=== PATIENT | male | born 1985 | race Caucasian/White ===

== ENCOUNTER 2017-04-28 11:46 | Emergency (ER) | payer MEDICAID ==
[~2017-04-28] VITALS: Ht 190.5 cm; Wt 79.4 kg
[2017-04-28] MEDS ORDERED: SUBOXONE PO (11:58)
[2017-04-28] MEDS ORDERED: GABA600T PO (11:58)
[2017-04-28] MEDS ORDERED: VENL75TA4 PO (11:58)
--- NOTE | 2017-04-28 12:24 | NUR ---
Dr Mcdonald at the bedside for eval and exam.
[2017-04-28] MEDS: TDAP DIPH,PERTUSS,TET VAC/PF 0.5 ML DISP.SYRIN IM ONE (12:45)
[2017-04-28] MEDS: VANCOMYCIN IV 1,000 MG in IV DEXTROSE 5% 250 ML IV ONE (12:52)
[2017-04-28] MEDS ORDERED: TDAP DIPH,PERTUSS,TET VAC/PF 0.5 ML DISP.SYRIN IM ONE (12:54)
[2017-04-28] MEDS ORDERED: VANCOMYCIN IV 200 ML ONE (12:54)
[2017-04-28 13:34] LABS: BASOPHILS % (AUTO) 0.4 % (0.0-2.0); EOSINOPHILS # (AUTO) 0.1 K/uL (0.0-0.7); HEMATOCRIT 46.6 % (36.7-47.1); LYMPHOCYTES # (AUTO) 1.2 K/uL (20.0-40.0); MEAN CORPUSCULAR HEMOGLOBIN 30.3 uug (23.8-33.4); MEAN CORPUSCULAR HGB CONC 34 g/dL (32.5-36.3); MEAN CORPUSCULAR VOLUME 88.2 fL (73.0-96.2); MONOCYTES % (AUTO) 9.8 % (0.0-11.0); NEUTROPHILS # (AUTO) 7.7 K/uL (1.8-8.9); NEUTROPHILS % (AUTO) 76.8 % (38.5-71.5); PLATELET COUNT (AUTO) 274 K/uL (152-348); RED BLOOD CELL COUNT(AUTO) 5.28 MIL/uL (4.06-5.63)
[2017-04-28 13:48] LABS: CREATININE 1.2 mg/dL (0.6-1.3); POTASSIUM 4.5 mmol/L (3.5-5.1)
[2017-04-28 13:52] LABS: BILIRUBIN,DIRECT 0.4 mg/dL (0.0-0.2); BILIRUBIN,TOTAL 1.3 mg/dL (0.2-1.0); TOTAL PROTEIN, SERUM 7.7 g/dL (6.4-8.2)
--- NOTE | 2017-04-28 14:25 | NUR ---
PT C/O GENERALIZED ITCHING OF SKIN. DR LEVIN MADE AWARE.
[2017-04-28] MEDS: diphenhydrAMINE 50 MG/1 ML VIAL IV ONE (14:28)
--- NOTE | 2017-04-28 14:32 | NUR ---
CALLED [facility] AND SPOKE TO NITA), FOR PT'S PERSONNEL PSYCHOLOGIST. ETA 10 MIN.
[2017-04-28] MEDS ORDERED: diphenhydrAMINE 50 MG/1 ML VIAL ONE (14:39)
[2017-04-28 14:42] VITALS: BP 122/76
--- NOTE | 2017-04-28 15:01 | NUR ---
Patient discharged to detox rep. in stable conditon. Written and verbal after care instructions given. Patient verbalizes understanding of instructions.
[2017-04-29 07:08] LABS: HEPATITIS A AB, TOTAL Negative (Negative); HEPATITIS B SURFACE AG Negative (Negative)
[2017-04-30 07:06] LABS: *GC NAA Negative (Negative); *TRIC.VAG. NAA Negative (Negative)
== END 2017-04-28 15:04 | disposition home or self-care (01) ==
LOC: ER 11:57
DX: L03.113 Cellulitis of right upper limb (principal); Z20.6 Contact with and (suspected) exposure to human immunodeficiency virus [HIV]; Z88.5 Allergy status to narcotic agent; F43.10 Post-traumatic stress disorder, unspecified
CPT/HCPCS: 36415; 73130; 80048; 80076; 83605; 84484; 85025; 85730; 86592; 86704; 86708; 86803; 87040 ×2; 87340; 87491; 87536; 87806; 90471; 90715; 96365; 96366; 96375; 99285; A4663; J1200; J3370; 70030-TC

== ENCOUNTER 2017-04-30 14:32 | Inpatient (IN) | payer BC, MEDICAID ==
[~2017-04-30] VITALS: Ht 190.5 cm; Wt 79.4 kg
[~2017-04-30 14:32] MED LIST: GABA600T PO; SUBOXONE PO; VENL75TA4 PO
[2017-04-30] MEDS ORDERED: [UNRECOGNIZED DRUG - REMARK] (14:58)
[2017-04-30] MEDS ORDERED: VANCOMYCIN IV 1,000 MG in IV DEXTROSE 5% 250 ML IV ONE (17:45)
[2017-04-30] MEDS ORDERED: CHLORDIAZEPOXIDE HCL 25 MG CAPSULE PO ONE (17:45)
[2017-04-30] MEDS ORDERED: IV NORMAL SALINE 1000 ML BAG IV ONE (17:45)
[2017-04-30] MEDS ORDERED: PIPERACILLIN SODIUM/TAZOBACTAM 3.375 G in IV DEXTROSE 5% 50 ML IV ONE (17:45)
[2017-04-30] MEDS ORDERED: RALT400T PO (17:54)
[2017-04-30] MEDS ORDERED: CLIN300C11 PO (17:54)
[2017-04-30] MEDS ORDERED: DOLU50TA PO (17:54)
[2017-04-30] MEDS ORDERED: CHLORDIAZEPOXIDE HCL 25 MG CAPSULE ONE (18:02)
[2017-04-30] MEDS ORDERED: VANCOMYCIN IV 200 ML ONE (18:03)
[2017-04-30] MEDS ORDERED: PIPERACILLIN/TAZOBACTAM/D5W 50 ML IV ONE (18:03)
[2017-04-30 18:26] LABS: CREATININE 1.1 mg/dL (0.6-1.3); POTASSIUM 4.2 mmol/L (3.5-5.1)
[2017-04-30 18:30] LABS: BASOPHILS % (AUTO) 0.4 % (0.0-2.0); EOSINOPHILS # (AUTO) 0.1 K/uL (0.0-0.7); EOSINOPHILS % (AUTO) 1.6 % (0.0-7.0); HEMATOCRIT 40.8 % (36.7-47.1); HEMOGLOBIN 14.2 g/dL (12.5-16.3); LYMPHOCYTES # (AUTO) 1.7 K/uL (20.0-40.0); LYMPHOCYTES % (AUTO) 20.5 % (20.5-51.5); MEAN CORPUSCULAR HEMOGLOBIN 30.9 uug (23.8-33.4); MEAN CORPUSCULAR HGB CONC 35 g/dL (32.5-36.3); MEAN CORPUSCULAR VOLUME 88.6 fL (73.0-96.2); MONOCYTES # (AUTO) 1.4 K/uL (2.0-10.0); MONOCYTES % (AUTO) 16.5 % (0.0-11.0); NEUTROPHILS # (AUTO) 5.2 K/uL (1.8-8.9); PLATELET COUNT (AUTO) 266 K/uL (152-348); RED BLOOD CELL COUNT(AUTO) 4.61 MIL/uL (4.06-5.63); WHITE BLOOD COUNT (AUTO) 8.5 K/uL (3.6-10.2)
[2017-04-30] MEDS ORDERED: ONDANSETRON 4 MG/2 ML VIAL IV PRN (18:30)
[2017-04-30] MEDS ORDERED: SUBOXONE PO SCH (18:30)
[2017-04-30] MEDS ORDERED: CEFTRIAXONE 1 G in IV DEXTROSE 5% 50 ML IV SCH (18:30)
[2017-04-30] MEDS ORDERED: RALTEGRAVIR POTASSIUM 400 MG TABLET PO SCH (18:30)
[2017-04-30] MEDS ORDERED: Medication Not On Formulary EA (Gabapentin (Neurontin) 600 MG) PO SCH (18:30)
[2017-04-30] MEDS ORDERED: MAGNESIUM HYDROXIDE 30 ML LIQUID UDC PO PRN (18:30)
[2017-04-30] MEDS ORDERED: ACETAMINOPHEN 325 MG TABLET PO PRN (18:30)
[2017-04-30 18:37] LABS: NEUTROPHILS % (MANUAL) 0 % (42-75)
[2017-04-30 22:15] VITALS: BP 109/68
[2017-04-30] MEDS: HYDROMORPHONE HCL 2 MG TABLET PO PRN (22:23)
[2017-04-30] MEDS: VENLAFAXINE 75 MG TABLET PO SCH (22:26)
[2017-04-30] MEDS: IV NS 1000 ML 1,000 ML IV PRN (22:28)
[2017-04-30] MEDS ORDERED: HYDROMORPHONE HCL 2 MG TABLET ONE (22:36)
[2017-04-30] MEDS ORDERED: CEFTRIAXONE 1 G VIAL ONE (22:48)
[2017-04-30] MEDS: LORAZEPAM 2 MG/1 ML VIAL IV PRN (23:12)
[2017-04-30] MEDS ORDERED: LORAZEPAM 2 MG/1 ML VIAL ONE (23:25)
[2017-05-01 04:00] VITALS: BP 113/75
[2017-05-01] MEDS: HYDROMORPHONE HCL 2 MG TABLET PO PRN ×4 (05:19→21:13)
[2017-05-01] MEDS ORDERED: HYDROMORPHONE HCL 2 MG TABLET ONE ×3 (05:29→22:13)
[2017-05-01] MEDS: LORAZEPAM 2 MG/1 ML VIAL IV PRN ×3 (05:32→21:15)
[2017-05-01] MEDS ORDERED: LORAZEPAM 2 MG/1 ML VIAL ONE ×2 (05:46→22:11)
[2017-05-01] MEDS ORDERED: VANCOMYCIN IV 1,250 MG in IV DEXTROSE 5% 500 ML IV SCH (08:15)
[2017-05-01] MEDS: VANCOMYCIN IV 1,250 MG in IV DEXTROSE 5% 500 ML IV SCH ×2 (09:22→19:20)
[2017-05-01] MEDS: GABAPENTIN 300 MG CAPSULE PO SCH ×3 (09:23→17:32)
[2017-05-01] MEDS: VENLAFAXINE 75 MG TABLET PO SCH (09:23)
[2017-05-01 11:03] LABS: BASOPHILS % (AUTO) 0.2 % (0.0-2.0); EOSINOPHILS # (AUTO) 0.1 K/uL (0.0-0.7); EOSINOPHILS % (AUTO) 1.7 % (0.0-7.0); HEMATOCRIT 42.2 % (36.7-47.1); LYMPHOCYTES % (AUTO) 12.6 % (20.5-51.5); MEAN CORPUSCULAR HEMOGLOBIN 29.5 uug (23.8-33.4); MEAN CORPUSCULAR HGB CONC 33 g/dL (32.5-36.3); MEAN CORPUSCULAR VOLUME 88.7 fL (73.0-96.2); MONOCYTES # (AUTO) 0.9 K/uL (2.0-10.0); MONOCYTES % (AUTO) 11.3 % (0.0-11.0); NEUTROPHILS # (AUTO) 5.8 K/uL (1.8-8.9); NEUTROPHILS % (AUTO) 74.2 % (38.5-71.5); PLATELET COUNT (AUTO) 262 K/uL (152-348); RED BLOOD CELL COUNT(AUTO) 4.76 MIL/uL (4.06-5.63); WHITE BLOOD COUNT (AUTO) 7.8 K/uL (3.6-10.2)
[2017-05-01 11:11] VITALS: BP 116/67
[2017-05-01 11:15] LABS: BILIRUBIN,TOTAL 0.4 mg/dL (0.2-1.0); CREATININE 0.9 mg/dL (0.6-1.3); MAGNESIUM 1.8 mg/dL (1.8-2.4); POTASSIUM 4.1 mmol/L (3.5-5.1); TOTAL PROTEIN, SERUM 6.6 g/dL (6.4-8.2)
[2017-05-01] MEDS ORDERED: NEUTRA PHOS PACKET PO ONE (13:15)
[2017-05-01 15:07] VITALS: BP 108/64
[2017-05-01] MEDS ORDERED: EMTR1TAB6 PO (15:09)
[2017-05-01] MEDS: TIVICAY PO SCH (17:31)
[2017-05-01] MEDS: TRUVADA PO SCH (17:31)
[2017-05-01] MEDS: ISENTRESS PO SCH (17:31)
[2017-05-01 19:00] VITALS: BP 110/67
[2017-05-01] MEDS: IV NS 1000 ML 1,000 ML IV PRN (20:42)
[2017-05-01] MEDS: CEFTRIAXONE 1 G in IV DEXTROSE 5% 50 ML IV SCH ×2 (20:42→21:58)
[2017-05-01] MEDS ORDERED: LORAZEPAM 2 MG/1 ML VIAL IV ONE (22:00)
[2017-05-01] MEDS ORDERED: HYDROMORPHONE HCL 2 MG TABLET PO ONE (22:00)
[2017-05-02] MEDS: LORAZEPAM 2 MG/1 ML VIAL IV PRN ×5 (02:17→23:39)
[2017-05-02] MEDS ORDERED: LORAZEPAM 2 MG/1 ML VIAL ONE (02:30)
[2017-05-02] MEDS: HYDROMORPHONE HCL 2 MG TABLET PO PRN ×5 (02:34→23:38)
[2017-05-02] MEDS ORDERED: HYDROMORPHONE HCL 2 MG TABLET ONE (02:47)
[2017-05-02 04:00] VITALS: BP 138/70
[2017-05-02] MEDS: VANCOMYCIN IV 1,250 MG in IV DEXTROSE 5% 500 ML IV SCH ×2 (04:45→16:44)
[2017-05-02] MEDS: GABAPENTIN 300 MG CAPSULE PO SCH ×3 (08:00→16:49)
[2017-05-02] MEDS: TIVICAY PO SCH (08:00)
[2017-05-02] MEDS: VENLAFAXINE 75 MG TABLET PO SCH (08:00)
[2017-05-02] MEDS: ISENTRESS PO SCH ×2 (08:00→16:49)
[2017-05-02] MEDS: TRUVADA PO SCH (08:01)
[2017-05-02 09:15] LABS: BILIRUBIN,TOTAL 0.5 mg/dL (0.2-1.0); CREATININE 1.1 mg/dL (0.6-1.3); MAGNESIUM 1.9 mg/dL (1.8-2.4); PHOSPHOROUS 3.3 mg/dL (2.5-4.9); POTASSIUM 4.1 mmol/L (3.5-5.1); TOTAL PROTEIN, SERUM 7.4 g/dL (6.4-8.2)
[2017-05-02 09:39] LABS: BASOPHILS % (AUTO) 0.6 % (0.0-2.0); EOSINOPHILS # (AUTO) 0.1 K/uL (0.0-0.7); EOSINOPHILS % (AUTO) 2.1 % (0.0-7.0); HEMATOCRIT 43.7 % (36.7-47.1); HEMOGLOBIN 15.2 g/dL (12.5-16.3); LYMPHOCYTES # (AUTO) 1.3 K/uL (20.0-40.0); MEAN CORPUSCULAR HEMOGLOBIN 30.5 uug (23.8-33.4); MEAN CORPUSCULAR HGB CONC 35 g/dL (32.5-36.3); MEAN CORPUSCULAR VOLUME 87.5 fL (73.0-96.2); MONOCYTES # (AUTO) 0.7 K/uL (2.0-10.0); MONOCYTES % (AUTO) 13.2 % (0.0-11.0); NEUTROPHILS # (AUTO) 3.1 K/uL (1.8-8.9); NEUTROPHILS % (AUTO) 59.1 % (38.5-71.5); PLATELET COUNT (AUTO) 302 K/uL (152-348); RED BLOOD CELL COUNT(AUTO) 4.99 MIL/uL (4.06-5.63)
[2017-05-02 09:55] LABS: WHITE BLOOD COUNT (AUTO) 5.2 K/uL (3.6-10.2)
[2017-05-02 11:35] VITALS: BP 110/65
[2017-05-02 15:52] VITALS: BP 105/65
[2017-05-02] MEDS: MUPIROCIN 2% OINT 22 GM TUBE NS SCH ×2 (16:48→21:12)
[2017-05-02] MEDS: IV NS 1000 ML 1,000 ML IV PRN ×2 (18:57→23:58)
[2017-05-02 19:00] VITALS: BP 133/68
[2017-05-02] MEDS: CEFTRIAXONE 1 G in IV DEXTROSE 5% 50 ML IV SCH (21:12)
[2017-05-03] MEDS: VANCOMYCIN IV 1,250 MG in IV DEXTROSE 5% 500 ML IV SCH ×3 (00:47→22:56)
[2017-05-03 04:00] VITALS: BP 126/78
[2017-05-03] MEDS: LORAZEPAM 2 MG/1 ML VIAL IV PRN ×5 (05:13→21:43)
[2017-05-03] MEDS: HYDROMORPHONE HCL 2 MG TABLET PO PRN ×5 (05:15→21:44)
[2017-05-03] MEDS: TIVICAY PO SCH (08:51)
[2017-05-03] MEDS: ISENTRESS PO SCH ×2 (08:52→17:43)
[2017-05-03] MEDS: TRUVADA PO SCH (08:52)
[2017-05-03] MEDS: GABAPENTIN 300 MG CAPSULE PO SCH ×3 (08:52→17:42)
[2017-05-03] MEDS: VENLAFAXINE 75 MG TABLET PO SCH (08:52)
[2017-05-03] MEDS: MUPIROCIN 2% OINT 22 GM TUBE NS SCH ×2 (08:53→21:41)
[2017-05-03 13:02] VITALS: BP 117/54
[2017-05-03 15:45] VITALS: BP 120/58
[2017-05-03 19:00] VITALS: BP 111/48
[2017-05-03] MEDS: CEFTRIAXONE 1 G in IV DEXTROSE 5% 50 ML IV SCH (21:41)
[2017-05-03] MEDS: IV NS 1000 ML 1,000 ML IV PRN (22:56)
[2017-05-04 04:00] VITALS: BP 117/68
[2017-05-04] MEDS: VANCOMYCIN IV 1,250 MG in IV DEXTROSE 5% 500 ML IV SCH (06:32)
[2017-05-04 06:49] LABS: BASOPHILS % (AUTO) 0.6 % (0.0-2.0); EOSINOPHILS # (AUTO) 0.1 K/uL (0.0-0.7); EOSINOPHILS % (AUTO) 1.9 % (0.0-7.0); HEMATOCRIT 45.9 % (36.7-47.1); HEMOGLOBIN 15.5 g/dL (12.5-16.3); LYMPHOCYTES # (AUTO) 1.3 K/uL (20.0-40.0); LYMPHOCYTES % (AUTO) 20.1 % (20.5-51.5); MEAN CORPUSCULAR HEMOGLOBIN 29.9 uug (23.8-33.4); MEAN CORPUSCULAR HGB CONC 34 g/dL (32.5-36.3); MEAN CORPUSCULAR VOLUME 88.5 fL (73.0-96.2); MONOCYTES # (AUTO) 0.7 K/uL (2.0-10.0); MONOCYTES % (AUTO) 10.1 % (0.0-11.0); NEUTROPHILS # (AUTO) 4.4 K/uL (1.8-8.9); NEUTROPHILS % (AUTO) 67.3 % (38.5-71.5); PLATELET COUNT (AUTO) 331 K/uL (152-348); RED BLOOD CELL COUNT(AUTO) 5.18 MIL/uL (4.06-5.63); WHITE BLOOD COUNT (AUTO) 6.6 K/uL (3.6-10.2)
[2017-05-04 07:18] LABS: BILIRUBIN,TOTAL 0.3 mg/dL (0.2-1.0); CREATININE 1.1 mg/dL (0.6-1.3); MAGNESIUM 1.9 mg/dL (1.8-2.4); PHOSPHOROUS 3.4 mg/dL (2.5-4.9); POTASSIUM 4.1 mmol/L (3.5-5.1); TOTAL PROTEIN, SERUM 7.7 g/dL (6.4-8.2)
[2017-05-04] MEDS: HYDROMORPHONE HCL 2 MG TABLET PO PRN ×3 (08:09→16:32)
[2017-05-04] MEDS: LORAZEPAM 2 MG/1 ML VIAL IV PRN ×2 (08:09→12:26)
[2017-05-04] MEDS: TRUVADA PO SCH (09:00)
[2017-05-04] MEDS: VENLAFAXINE 75 MG TABLET PO SCH (09:27)
[2017-05-04] MEDS: MUPIROCIN 2% OINT 22 GM TUBE NS SCH (09:28)
[2017-05-04] MEDS: TIVICAY PO SCH (09:28)
[2017-05-04] MEDS: GABAPENTIN 300 MG CAPSULE PO SCH ×3 (09:28→16:31)
[2017-05-04] MEDS: ISENTRESS PO SCH ×2 (09:28→16:34)
[2017-05-04 12:12] VITALS: BP_SYST 117
[2017-05-04 16:00] VITALS: BP 118/68
[2017-05-04] MEDS ORDERED: LORAZEPAM 1 MG TABLET PO ONE (16:00)
[2017-05-04] MEDS ORDERED: CLONAZEPAM 1 MG TABLET PO ONE (16:00)
== END 2017-05-04 17:05 | disposition home or self-care (01) | DRG 603 ==
LOC: ER 14:32 → MED 21:23
PROVIDERS: ADMIT Internal Medicine; ATTEND Internal Medicine
DX: L03.113 Cellulitis of right upper limb (principal); F13.20 Sedative, hypnotic or anxiolytic dependence, uncomplicated; S61.441 Puncture wound with foreign body of right hand; F43.10 Post-traumatic stress disorder, unspecified; X78.8XXS Intentional self-harm by other sharp object, sequela; F32.9 Major depressive disorder, single episode, unspecified; Z79.899 Other long term (current) drug therapy; Z86.19 Personal history of other infectious and parasitic diseases; F15.90 Other stimulant use, unspecified, uncomplicated; Z22.322 Carrier or suspected carrier of Methicillin resistant Staphylococcus aureus
CPT/HCPCS: 36415; 83605; 83735; 84100; 85025; 85730; 87040; A4663; J0696; J2060; J2543; J3370; J7030; J7060

== ENCOUNTER 2017-05-07 11:45 | Inpatient (IN) | payer BC, MEDICAID ==
[~2017-05-07] VITALS: Ht 190.5 cm; Wt 77.1 kg
[~2017-05-07 11:45] MED LIST changes: +DOLU50TA PO; +EMTR1TAB6 PO; +RALT400T PO
[2017-05-07] MEDS ORDERED: KETOROLAC TROMETHAMINE 15 MG INJ IVP ONE (13:45)
[2017-05-07] MEDS ORDERED: CEFTRIAXONE 1 G in IV DEXTROSE 5% 50 ML IV ONE (13:45)
[2017-05-07] MEDS ORDERED: MORPHINE SULFATE 4 MG/1 ML DISP.SYRIN IV ONE (14:00)
[2017-05-07] MEDS ORDERED: CEFTRIAXONE 1 G VIAL ONE (14:16)
[2017-05-07] MEDS ORDERED: KETOROLAC TROMETHAMINE 15 MG INJ ONE (14:21)
[2017-05-07 14:22] LABS: BASOPHILS % (AUTO) 0.8 % (0.0-2.0); EOSINOPHILS # (AUTO) 0.1 K/uL (0.0-0.7); EOSINOPHILS % (AUTO) 1.6 % (0.0-7.0); HEMATOCRIT 45.6 % (36.7-47.1); HEMOGLOBIN 15.7 g/dL (12.5-16.3); LYMPHOCYTES # (AUTO) 1.9 K/uL (20.0-40.0); LYMPHOCYTES % (AUTO) 30.6 % (20.5-51.5); MEAN CORPUSCULAR HGB CONC 34 g/dL (32.5-36.3); MEAN CORPUSCULAR VOLUME 87.2 fL (73.0-96.2); MONOCYTES # (AUTO) 0.6 K/uL (2.0-10.0); MONOCYTES % (AUTO) 9.4 % (0.0-11.0); NEUTROPHILS # (AUTO) 3.6 K/uL (1.8-8.9); NEUTROPHILS % (AUTO) 57.6 % (38.5-71.5); PLATELET COUNT (AUTO) 386 K/uL (152-348); RED BLOOD CELL COUNT(AUTO) 5.23 MIL/uL (4.06-5.63); WHITE BLOOD COUNT (AUTO) 6.2 K/uL (3.6-10.2)
[2017-05-07 14:42] LABS: CREATININE 1.3 mg/dL (0.6-1.3); POTASSIUM 4.2 mmol/L (3.5-5.1)
[2017-05-07] MEDS ORDERED: MORPHINE SULFATE 4 MG/1 ML DISP.SYRIN ONE (14:43)
[2017-05-07] MEDS ORDERED: MORPHINE SULFATE 2 MG/1 ML DISP.SYRIN ONE (14:44)
[2017-05-07] MEDS ORDERED: VANCOMYCIN IV 1,250 MG in IV DEXTROSE 5% 500 ML IV ONE (14:45)
[2017-05-07] MEDS ORDERED: diphenhydrAMINE 50 MG/1 ML VIAL IV ONE (14:45)
[2017-05-07] MEDS ORDERED: MAGNESIUM HYDROXIDE 30 ML LIQUID UDC PO PRN (15:00)
[2017-05-07] MEDS ORDERED: PIPERACILLIN SODIUM/TAZOBACTAM 4.5 G in IV DEXTROSE 5% 50 ML IV SCH (15:00)
[2017-05-07] MEDS ORDERED: ONDANSETRON 4 MG/2 ML VIAL IV PRN (15:00)
[2017-05-07] MEDS ORDERED: VANCOMYCIN IV 1 G in PREMIXED 0 EACH IV SCH (15:00)
[2017-05-07] MEDS ORDERED: ACETAMINOPHEN 325 MG TABLET PO PRN (15:00)
[2017-05-07] MEDS ORDERED: diphenhydrAMINE 50 MG/1 ML VIAL ONE (15:13)
[2017-05-07] MEDS ORDERED: RALTEGRAVIR POTASSIUM 400 MG TABLET PO SCH (17:00)
[2017-05-07] MEDS ORDERED: LORAZEPAM 0.5 MG TABLET PO ONE (17:15)
[2017-05-07] MEDS: GABAPENTIN 400 MG CAPSULE PO SCH (17:20)
[2017-05-07] MEDS ORDERED: GABAPENTIN 300 MG CAPSULE ONE (17:33)
[2017-05-07] MEDS ORDERED: RALTEGRAVIR POTASSIUM 400 MG TABLET PO ONE (17:33)
[2017-05-07] MEDS ORDERED: LORAZEPAM 1 MG TABLET ONE (17:56)
[2017-05-07] MEDS ORDERED: PIPERACILLIN/TAZO 4.5 GM VIAL IV ONE (17:59)
[2017-05-07] MEDS ORDERED: ACETAMINOPHEN 325 MG TABLET ONE (19:12)
[2017-05-07 20:30] VITALS: BP 123/71
[2017-05-08] MEDS ORDERED: PIPERACILLIN SODIUM/TAZOBACTAM 4.5 G in IV DEXTROSE 5% 50 ML IV SCH (02:00)
[2017-05-08] MEDS ORDERED: VANCOMYCIN 1000 MG VIAL ONE (02:58)
[2017-05-08] MEDS ORDERED: VANCOMYCIN HCL 500 MG VIAL ONE (02:58)
[2017-05-08] MEDS ORDERED: PIPERACILLIN/TAZO 4.5 GM VIAL IV ONE (02:59)
[2017-05-08] MEDS: VANCOMYCIN IV 1,250 MG in IV DEXTROSE 5% 500 ML IV SCH ×3 (03:13→22:41)
[2017-05-08] MEDS: HYDROCODONE/APAP 5-325MG TABLET PO PRN (03:48)
[2017-05-08] MEDS ORDERED: HYDROCODONE/APAP 5-325MG TABLET ONE (06:03)
[2017-05-08] MEDS: GABAPENTIN 400 MG CAPSULE PO SCH ×2 (06:15→08:07)
[2017-05-08 06:48] VITALS: BP 122/65
[2017-05-08 06:53] LABS: BASOPHILS % (AUTO) 0.8 % (0.0-2.0); EOSINOPHILS # (AUTO) 0.1 K/uL (0.0-0.7); EOSINOPHILS % (AUTO) 2.2 % (0.0-7.0); HEMOGLOBIN 15.6 g/dL (12.5-16.3); LYMPHOCYTES # (AUTO) 1.5 K/uL (20.0-40.0); LYMPHOCYTES % (AUTO) 36.6 % (20.5-51.5); MEAN CORPUSCULAR HEMOGLOBIN 29.9 uug (23.8-33.4); MEAN CORPUSCULAR HGB CONC 34 g/dL (32.5-36.3); MEAN CORPUSCULAR VOLUME 88.1 fL (73.0-96.2); MONOCYTES # (AUTO) 0.5 K/uL (2.0-10.0); MONOCYTES % (AUTO) 12.9 % (0.0-11.0); NEUTROPHILS % (AUTO) 47.5 % (38.5-71.5); PLATELET COUNT (AUTO) 367 K/uL (152-348); RED BLOOD CELL COUNT(AUTO) 5.22 MIL/uL (4.06-5.63); WHITE BLOOD COUNT (AUTO) 4.1 K/uL (3.6-10.2)
[2017-05-08 06:59] LABS: CREATININE 1.2 mg/dL (0.6-1.3); MAGNESIUM 2.1 mg/dL (1.8-2.4); POTASSIUM 4.2 mmol/L (3.5-5.1)
[2017-05-08 07:16] LABS: THYROID STIMULATING HORMONE 2.933 mIU/mL (0.358-3.740)
[2017-05-08] MEDS: VENLAFAXINE 75 MG TABLET PO SCH (08:07)
[2017-05-08] MEDS: OXYCODONE HCL 5 MG TABLET PO PRN ×2 (09:57→18:18)
[2017-05-08] MEDS: CLONAZEPAM 1 MG TABLET PO PRN ×2 (09:57→22:37)
[2017-05-08 11:34] VITALS: BP 114/73
[2017-05-08] MEDS: EMTRICITABINE/TENOFOVIR TABLET PO SCH (13:01)
[2017-05-08] MEDS: TIVICAY 50MG TABLET PO SCH (13:01)
[2017-05-08] MEDS: PIPERACILLIN SODIUM/TAZOBACTAM 4.5 G in IV DEXTROSE 5% 50 ML IV SCH ×2 (13:11→21:32)
[2017-05-08] MEDS: GABAPENTIN 300 MG CAPSULE PO SCH ×2 (13:12→16:48)
[2017-05-08] MEDS ORDERED: LIDOCAINE 1%-EPI 1:100,000 20 ML VIAL TP ONE (13:30)
[2017-05-08] MEDS ORDERED: LIDOCAINE 1% 30 ML VIAL MC ONE (13:30)
[2017-05-08] MEDS ORDERED: SILVER NITRATE APPLICATOR STICK EACH TP ONE (13:30)
[2017-05-08 15:44] VITALS: BP 98/65
[2017-05-08 20:39] VITALS: BP 115/65
[2017-05-09] MEDS: OXYCODONE HCL 5 MG TABLET PO PRN ×2 (03:07→11:00)
[2017-05-09 04:00] VITALS: BP 117/72
[2017-05-09] MEDS: PIPERACILLIN SODIUM/TAZOBACTAM 4.5 G in IV DEXTROSE 5% 50 ML IV SCH ×2 (05:32→13:02)
[2017-05-09] MEDS: HYDROCODONE/APAP 5-325MG TABLET PO PRN (05:47)
[2017-05-09] MEDS: TIVICAY 50MG TABLET PO SCH (08:47)
[2017-05-09] MEDS: EMTRICITABINE/TENOFOVIR TABLET PO SCH (08:47)
[2017-05-09] MEDS: CLONAZEPAM 1 MG TABLET PO PRN (08:48)
[2017-05-09] MEDS: GABAPENTIN 300 MG CAPSULE PO SCH ×2 (08:48→12:45)
[2017-05-09] MEDS: VENLAFAXINE 75 MG TABLET PO SCH (08:48)
[2017-05-09 11:28] VITALS: BP 108/66
[2017-05-09] MEDS ORDERED: SULF1TAB48 PO (12:51)
[2017-05-09] MEDS ORDERED: VANCOMYCIN IV 1,250 MG in IV DEXTROSE 5% 500 ML IV SCH (16:00)
== END 2017-05-10 00:35 | disposition home or self-care (01) | DRG 603 ==
LOC: ER 11:47 → MED 20:18
PROC: 0H9FX0Z Drainage of Right Hand Skin with Drainage Device, External Approach (ICD-10-PCS; principal; 2017-05-08)
DX: L03.113 Cellulitis of right upper limb (principal); F13.20 Sedative, hypnotic or anxiolytic dependence, uncomplicated; L02.511 Cutaneous abscess of right hand; F43.10 Post-traumatic stress disorder, unspecified; S61.441 Puncture wound with foreign body of right hand; T81.4XXS Infection following a procedure, sequela; X78.8XXS Intentional self-harm by other sharp object, sequela; F15.10 Other stimulant abuse, uncomplicated; Z79.899 Other long term (current) drug therapy; Z86.19 Personal history of other infectious and parasitic diseases; F32.9 Major depressive disorder, single episode, unspecified
CPT/HCPCS: 36415; 73130; 83735; 84100; 84443; 85025; 85730; 86140; 87070; A4217; A4663; J0696; J1200; J1885; J2001; J2270; J2543; J3370; J7050; J7060